=== PATIENT | male | born 1965 | race Caucasian/White ===

== ENCOUNTER 2024-09-01 09:03 | Day surgery (SDC) | payer BC ==
[2024-08-31 15:59] LABS: BASOPHILS # (AUTO) 0.1 X10'3 (0-0.2); BASOPHILS % (AUTO) 0.8 % (0-1); EOSINOPHILS # (AUTO) 0.4 X10'3 (0-0.9); EOSINOPHILS % (AUTO) 4.8 % (0-6); HEMATOCRIT 43.7 % (42.0-52.0); HEMOGLOBIN 15.1 g/dl (14.0-17.9); LYMPHOCYTES # (AUTO) 1.4 X10'3 (1.1-4.8); LYMPHOCYTES % (AUTO) 15.5 % (21-51); MEAN CORPUSCULAR HEMOGLOBIN 35.4 PG (27.0-31.0); MEAN CORPUSCULAR HGB CONC 34.6 g/dL (33.0-36.5); MEAN CORPUSCULAR VOLUME 102.3 FL (78-98); MEAN PLATELET VOLUME 7.5 FL (7.4-10.4); MONOCYTES # (AUTO) 1.1 X10'3 (0-0.9); MONOCYTES % (AUTO) 11.9 % (2-12); NEUTROPHILS # (AUTO) 6.3 X10'3 (1.8-7.7); PLATELET COUNT 345 X10'3 (140-440); RED BLOOD COUNT 4.27 X10'6 (4.70-6.10); RED CELL DISTRIBUTION WIDTH 12.6 % (11.5-14.5); WHITE BLOOD COUNT 9.3 X10'3 (4.5-11.0)
[2024-08-31 16:17] LABS: PROTHROMBIN TIME 10.6 SECONDS (9.0-12.0)
[2024-08-31 16:20] LABS: ALBUMIN 3.6 G/DL (3.4-5.0); ANION GAP 6 (8-16); BLOOD UREA NITROGEN 12 MG/DL (7-18); BUN/CREATININE RATIO 13.5 (10.0-20.0); CALCIUM 9.2 MG/DL (8.5-10.1); CHLORIDE 103 MMOL/L (99-107); CREATININE 0.89 MG/DL (0.60-1.10); GLUCOSE 84 MG/DL (70-104); POTASSIUM 4.2 MMOL/L (3.5-5.1); SODIUM 138 MMOL/L (135-145); TOTAL CARBON DIOXIDE 29.3 MMOL/L (24-32); eGFR 87 ML/MIN
[2024-09-01] VITALS (16 sets, daily range): BP systolic 100–151; BP diastolic 70–101; PULSE 75–125; RESP 14–16; TEMP 97.9; O2SAT 96–99
[~2024-09-01] VITALS: Ht 182.9 cm; Wt 80.7 kg
[2024-09-01] MEDS ORDERED: FLO0.4C PO (09:33)
[2024-09-01] MEDS ORDERED: ATOR10TA70 PO (09:33)
[2024-09-01] MEDS ORDERED: LOSA50TA64 PO (09:33)
[2024-09-01] MEDS ORDERED: CARV6.2553 PO (09:34)
[2024-09-01] MEDS ORDERED: APIX5TAB3 PO (09:34)
[2024-09-01] MEDS ORDERED: FLEC100T PO (09:34)
[2024-09-01] MEDS ORDERED: diphenhydrAMINE 25mg capsule PO ONE (09:55)
[2024-09-01] MEDS ORDERED: atropine 0.1mg/ml 10ml syringe IV ONE (09:55)
[2024-09-01] MEDS ORDERED: LORazepam 0.5 MG tablet PO ONE (09:55)
[2024-09-01] MEDS: amiodarone 150mg/dext, iso-os 100 ML IV ONE (11:40)
[2024-09-01] MEDS: normal saline 1000ml 1,000 ML IV SCH (11:40)
[2024-09-01] MEDS: morphine 10mg/ml inj. IV ONE (11:40)
[2024-09-01] MEDS: MIDAZolam 1mg/ml 10ml vial IV ONE (11:40)
== END 2024-09-01 13:05 | disposition home or self-care (01) ==
LOC: SSTAY O 09:03
PROVIDERS: ATTEND Internal Medicine Cardiovascular Disease
DX: I48.19 Other persistent atrial fibrillation (principal); I49.3 Ventricular premature depolarization; I10 Essential (primary) hypertension; E78.5 Hyperlipidemia, unspecified; I25.2 Old myocardial infarction; F17.210 Nicotine dependence, cigarettes, uncomplicated; Z79.01 Long term (current) use of anticoagulants; Z79.899 Other long term (current) drug therapy; Z82.49 Family history of ischemic heart disease and other diseases of the circulatory system; Z83.3 Family history of diabetes mellitus
CPT/HCPCS: 36415; 80048; 85025; 85610; 92960; 93005; J0282; J2250; J2274; J7030